=== PATIENT | male | born 1935 | race Caucasian/White ===

== ENCOUNTER 2017-04-14 19:16 | Emergency (ER) | payer MEDICARE ==
[~2017-04-14] VITALS: Ht 182.9 cm; Wt 106.5 kg
[2017-04-14 19:18] VITALS: BP 150/75; TEMP 97.3
[2017-04-14 20:09] LABS: ALBUMIN 4.1 gm/dL (3.5-5.0); BILIRUBIN,TOTAL 1.5 mg/dL (0.0-1.0); CREATININE, serum 0.93 mg/dL (0.66-1.25); POTASSIUM 4.3 mmol/L (3.4-5.0); TOTAL PROTEIN 7.3 gm/dL (6.4-8.2)
[2017-04-14 20:13] LABS: COLLECTION METHOD CLEAN CATCH
[2017-04-14 20:18] LABS: BASO % 0.1 % (0.0-2.0); EOS % 0.3 % (0-4.0); GRAN # 10.7 (1.4-6.5); GRAN % 77.6 % (42.2-75.2); HEMOGLOBIN 14.5 g/dl (13.5-18.0); LYMPH # 1.5 (1.2-3.4); LYMPH % 11.1 % (20.0-51.0); MEAN CELL VOLUME 90 fl (80.0-100.0); MEAN CORPUSCULAR HEMOGLOBIN 30 pg (27.0-31.0); MEAN CORPUSCULAR HGB CONC 33 g/dl (33.0-37.0); MEAN PLATELET VOLUME 11.2 fl (7.4-10.4); MONO # 1.4 (0.1-0.6); MONO % 10.3 % (1.7-9.3); PLATELET COUNT 208 K/mm3 (130-400); RED BLOOD COUNT 4.89 M/mm3 (4.20-5.60); REDCELL DISTRIBUTION WIDTH-CV 13.3 % (11.5-14.5)
[2017-04-14 20:23] LABS: INR 1.1 (0.8-3.0); PROTHROMBIN TIME 13.1 SECONDS (9.7-12.8)
[2017-04-14 20:26] LABS: PH 5 (5-8); SQUAMOUS EPITHELIAL 0-2 /hpf; URINE APPEARANCE Cloudy; URINE BACTERIA None Seen /hpf; URINE BILIRUBIN Negative (NEGATIVE); URINE BLOOD Negative (NEGATIVE); URINE COLOR Yellow; URINE GLUCOSE Negative (NEGATIVE); URINE KETONE Negative (NEGATIVE); URINE LEUKOCYTE ESTERASE 3+ (NEGATIVE); URINE NITRATE Negative (NEGATIVE); URINE PROTEIN(semi-quant) Negative (NEGATIVE)
[2017-04-14] MEDS ORDERED: LIPITOR 10MG10 MG PO (21:00)
[2017-04-14] MEDS ORDERED: PULMICORT0.5 MG/2 M IH (21:00)
[2017-04-14] MEDS ORDERED: IPRATROPIUM BROM3 M1 IH (21:00)
[2017-04-14] MEDS ORDERED: MULTI VITAMINS1 TAB PO (21:01)
[2017-04-14] MEDS ORDERED: FLOMAX 0.40.4 MG/CAP PO (21:01)
[2017-04-14] MEDS ORDERED: ASPIRIN 81M81 MG/TA2 PO (21:01)
[2017-04-14] MEDS ORDERED: PLAVIX 75MG TAB75 MG PO (21:01)
[2017-04-14] MEDS ORDERED: CALCIUM 600600 M2 PO (21:02)
[2017-04-14] MEDS ORDERED: ICAPS TABLET1 EACH PO (21:07)
[2017-04-14] MEDS ORDERED: XANAX 0.5MG0.5 MG PO (21:07)
[2017-04-14] MEDS ORDERED: COREG 6.256.25 MG/TA PO (21:08)
[2017-04-14] MEDS ORDERED: EX-LAX MAXIMUM25 MG PO (21:09)
[2017-04-14] MEDS ORDERED: CORDARONE200 MG/TAB PO (21:09)
[2017-04-14] MEDS ORDERED: SINGULAIR 110 MG/TAB PO (21:09)
[2017-04-14] MEDS ORDERED: CEPHALEXIN500 M1 PO (21:10)
[2017-04-14] MEDS ORDERED: OMNICEF 300MG300 MG PO (21:21)
[2017-04-14 22:00] VITALS: PULSE 75
== END 2017-04-14 22:00 | disposition home or self-care (01) ==
LOC: COL.ER 19:16
PROVIDERS: Emergency Medicine
DX: N39.0 Urinary tract infection, site not specified (principal)
CPT/HCPCS: J0696

== ENCOUNTER 2017-06-07 11:37 | Emergency (ER) | payer MEDICARE ==
[~2017-06-07] VITALS: Ht 185.4 cm; Wt 100.0 kg
[~2017-06-07 11:37] MED LIST: ASPIRIN 81M81 MG/TA2 PO; CALCIUM 600600 M2 PO; CEPHALEXIN500 M1 PO; CORDARONE200 MG/TAB PO; COREG 6.256.25 MG/TA PO; EX-LAX MAXIMUM25 MG PO; FLOMAX 0.40.4 MG/CAP PO; ICAPS TABLET1 EACH PO; IPRATROPIUM BROM3 M1 IH; LIPITOR 10MG10 MG PO; MULTI VITAMINS1 TAB PO; OMNICEF 300MG300 MG PO; PLAVIX 75MG TAB75 MG PO; PULMICORT0.5 MG/2 M IH; SINGULAIR 110 MG/TAB PO; XANAX 0.5MG0.5 MG PO
[2017-06-07 12:16] LABS: BASO % 0.2 % (0.0-2.0); EOS # 0.3 (0.0-0.7); EOS % 2.8 % (0-4.0); GRAN # 5.8 (1.4-6.5); GRAN % 64.7 % (42.2-75.2); HEMATOCRIT 44.7 % (42.0-52.0); HEMOGLOBIN 14.8 g/dl (13.5-18.0); LYMPH # 1.8 (1.2-3.4); LYMPH % 20.4 % (20.0-51.0); MEAN CELL VOLUME 89 fl (80.0-100.0); MEAN CORPUSCULAR HEMOGLOBIN 29 pg (27.0-31.0); MEAN CORPUSCULAR HGB CONC 33 g/dl (33.0-37.0); MEAN PLATELET VOLUME 10.5 fl (7.4-10.4); MONO % 11.6 % (1.7-9.3); PLATELET COUNT 198 K/mm3 (130-400); RED BLOOD COUNT 5.03 M/mm3 (4.20-5.60); REDCELL DISTRIBUTION WIDTH-CV 13.3 % (11.5-14.5)
[2017-06-07 12:18] VITALS: BP 102/73; TEMP 97
[2017-06-07 12:21] LABS: INR 1.1 (0.8-3.0); PROTHROMBIN TIME 12.4 SECONDS (9.7-12.8)
[2017-06-07 12:23] LABS: PARTIAL THROMBOPLASTIN TIME 28.5 SECONDS (26.0-37.0)
[2017-06-07 12:30] LABS: ALBUMIN 3.7 gm/dL (3.5-5.0); CALCIUM 8.9 mg/dL (8.4-10.2); CREATININE, serum 0.96 mg/dL (0.66-1.25); POTASSIUM 4.6 mmol/L (3.4-5.0); TOTAL PROTEIN 7.2 gm/dL (6.4-8.2)
[2017-06-07 12:56] LABS: COLLECTION METHOD CLEAN CATCH
[2017-06-07 13:02] LABS: MUCOUS Present /lpf; PH 6 (5-8); SQUAMOUS EPITHELIAL 0-2 /hpf; URINE APPEARANCE Clear; URINE BACTERIA None Seen /hpf; URINE BILIRUBIN Negative (NEGATIVE); URINE BLOOD 1+ (NEGATIVE); URINE COLOR Yellow; URINE GLUCOSE Negative (NEGATIVE); URINE KETONE Negative (NEGATIVE); URINE LEUKOCYTE ESTERASE Negative (NEGATIVE); URINE NITRATE Negative (NEGATIVE); URINE PROTEIN(semi-quant) Negative (NEGATIVE); URINE RBC 0-2 /hpf; URINE UROBILINOGEN Negative (NEGATIVE)
[2017-06-07] MEDS ORDERED: AMOXICILLIN 8751 TAB PO (15:26)
[2017-06-07] MEDS ORDERED: LASIX 20MG TABL20 MG PO (15:27)
[2017-06-07 16:29] VITALS: PULSE 75
== END 2017-06-07 16:30 | disposition home or self-care (01) ==
LOC: COL.ER 11:37
PROVIDERS: Emergency Medicine
DX: S00.83XA Contusion of other part of head, initial encounter (principal); Z79.02 Long term (current) use of antithrombotics/antiplatelets; Z79.82 Long term (current) use of aspirin; W01.10XA Fall on same level from slipping, tripping and stumbling with subsequent striking against unspecified object, initial encounter

== ENCOUNTER 2017-08-31 15:03 | Inpatient (IN) | payer MEDICARE ==
[~2017-08-31] VITALS: Ht 182.9 cm; Wt 107.5 kg
[~2017-08-31 15:03] MED LIST changes: +AMOXICILLIN 8751 TAB PO; +LASIX 20MG TABL20 MG PO
[2017-08-31 15:23] VITALS: BP 141/56; PULSE 76; TEMP 100.1
[2017-08-31] MEDS ORDERED: CLEOCIN HCL300 MG PO (16:26)
[2017-08-31 16:28] LABS: BASO % 0.3 % (0.0-2.0); EOS # 0.1 (0.0-0.7); EOS % 0.3 % (0-4.0); GRAN # 11.4 (1.4-6.5); HEMATOCRIT 41.6 % (42.0-52.0); HEMOGLOBIN 14.1 g/dl (13.5-18.0); LYMPH # 1.5 (1.2-3.4); LYMPH % 10.3 % (20.0-51.0); MEAN CELL VOLUME 87 fl (80.0-100.0); MEAN CORPUSCULAR HEMOGLOBIN 30 pg (27.0-31.0); MEAN CORPUSCULAR HGB CONC 34 g/dl (33.0-37.0); MEAN PLATELET VOLUME 11.1 fl (7.4-10.4); MONO # 1.5 (0.1-0.6); MONO % 10.4 % (1.7-9.3); PLATELET COUNT 186 K/mm3 (130-400); RED BLOOD COUNT 4.78 M/mm3 (4.20-5.60); REDCELL DISTRIBUTION WIDTH-CV 13.2 % (11.5-14.5)
[2017-08-31 16:54] VITALS: PULSE 75
[2017-08-31 17:25] LABS: ALBUMIN 3.4 gm/dL (3.5-5.0); BILIRUBIN,TOTAL 0.7 mg/dL (0.0-1.0); C-REACTIVE PROTEIN 8.5 mg/dL (0.0-0.9); CALCIUM 8.6 mg/dL (8.4-10.2); CREATININE, serum 0.82 mg/dL (0.66-1.25); POTASSIUM 4.5 mmol/L (3.4-5.0); TOTAL PROTEIN 6.6 gm/dL (6.4-8.2)
[2017-08-31 20:04] VITALS: BP 120/52; PULSE 69; TEMP 97.9
[2017-08-31 23:40] VITALS: BP 122/57; PULSE 70; TEMP 98.3
[2017-09-01 00:50] LABS: COLLECTION METHOD CLEAN CATCH
[2017-09-01 00:56] LABS: MUCOUS Present /lpf; PH 5 (5-8); SQUAMOUS EPITHELIAL None Seen /hpf; URINE APPEARANCE Clear; URINE BACTERIA None Seen /hpf; URINE BILIRUBIN Negative (NEGATIVE); URINE BLOOD Negative (NEGATIVE); URINE COLOR Yellow; URINE GLUCOSE Negative (NEGATIVE); URINE KETONE Negative (NEGATIVE); URINE LEUKOCYTE ESTERASE Negative (NEGATIVE); URINE NITRATE Negative (NEGATIVE); URINE PROTEIN(semi-quant) Negative (NEGATIVE); URINE RBC 0-2 /hpf
[2017-09-01 04:11] VITALS: BP 118/62; PULSE 63; TEMP 97.6
[2017-09-01 07:09] VITALS: BP 140/63; PULSE 73; TEMP 98
[2017-09-01 07:46] LABS: BASO % 0.4 % (0.0-2.0); EOS # 0.2 (0.0-0.7); EOS % 1.3 % (0-4.0); GRAN # 8.1 (1.4-6.5); HEMATOCRIT 40.8 % (42.0-52.0); HEMOGLOBIN 13.4 g/dl (13.5-18.0); LYMPH # 1.8 (1.2-3.4); LYMPH % 16.2 % (20.0-51.0); MEAN CELL VOLUME 88 fl (80.0-100.0); MEAN CORPUSCULAR HEMOGLOBIN 29 pg (27.0-31.0); MEAN CORPUSCULAR HGB CONC 33 g/dl (33.0-37.0); MEAN PLATELET VOLUME 10.7 fl (7.4-10.4); MONO % 9.3 % (1.7-9.3); PLATELET COUNT 189 K/mm3 (130-400); RED BLOOD COUNT 4.62 M/mm3 (4.20-5.60); REDCELL DISTRIBUTION WIDTH-CV 13.3 % (11.5-14.5)
[2017-09-01 08:03] LABS: CALCIUM 8.3 mg/dL (8.4-10.2); CREATININE, serum 0.81 mg/dL (0.66-1.25); POTASSIUM 4.1 mmol/L (3.4-5.0)
[2017-09-01 11:31] VITALS: BP 114/60; PULSE 68; TEMP 98.5
[2017-09-01 16:54] VITALS: BP 115/61; PULSE 68; TEMP 98.6
[2017-09-01 20:14] VITALS: BP 140/68; PULSE 78; TEMP 98
[2017-09-02 05:17] VITALS: BP 154/87; PULSE 92; TEMP 98.5
[2017-09-02 07:01] LABS: BASO % 0.4 % (0.0-2.0); EOS # 0.1 (0.0-0.7); EOS % 0.9 % (0-4.0); GRAN # 8.9 (1.4-6.5); GRAN % 78.2 % (42.2-75.2); HEMATOCRIT 43.1 % (42.0-52.0); HEMOGLOBIN 14.5 g/dl (13.5-18.0); LYMPH # 1.3 (1.2-3.4); LYMPH % 11.2 % (20.0-51.0); MEAN CELL VOLUME 85 fl (80.0-100.0); MEAN CORPUSCULAR HEMOGLOBIN 29 pg (27.0-31.0); MEAN CORPUSCULAR HGB CONC 34 g/dl (33.0-37.0); MEAN PLATELET VOLUME 10.5 fl (7.4-10.4); MONO # 0.9 (0.1-0.6); MONO % 8.3 % (1.7-9.3); PLATELET COUNT 228 K/mm3 (130-400); RED BLOOD COUNT 5.05 M/mm3 (4.20-5.60)
[2017-09-02 07:17] LABS: CALCIUM 8.6 mg/dL (8.4-10.2); CREATININE, serum 0.8 mg/dL (0.66-1.25); POTASSIUM 4.1 mmol/L (3.4-5.0)
[2017-09-02 08:29] VITALS: BP 153/82; PULSE 90; TEMP 98.7
[2017-09-02 11:35] VITALS: BP 89/46; PULSE 80; TEMP 97.7
[2017-09-02 16:18] VITALS: BP 84/39; PULSE 72; TEMP 98.4
[2017-09-02 17:31] VITALS: BP 128/70
[2017-09-02 19:43] VITALS: BP 101/55; PULSE 89; TEMP 98.2
[2017-09-03] VITALS (7 sets, daily range): BP systolic 125–144; BP diastolic 59–80; PULSE 69–81; TEMP 97.5–98.6
[2017-09-04 04:13] VITALS: BP 140/69; PULSE 69; TEMP 97.5
[2017-09-04 07:54] VITALS: BP 150/80; PULSE 73; TEMP 97.6
[2017-09-04] MEDS ORDERED: CLEOCIN HCL300 MG PO (09:22)
[2017-09-04 09:42] LABS: BASO % 0.4 % (0.0-2.0); EOS # 0.3 (0.0-0.7); EOS % 4.4 % (0-4.0); GRAN # 5.4 (1.4-6.5); GRAN % 69.6 % (42.2-75.2); HEMATOCRIT 44.4 % (42.0-52.0); HEMOGLOBIN 14.9 g/dl (13.5-18.0); LYMPH # 1.2 (1.2-3.4); LYMPH % 15.1 % (20.0-51.0); MEAN CELL VOLUME 87 fl (80.0-100.0); MEAN CORPUSCULAR HEMOGLOBIN 29 pg (27.0-31.0); MEAN CORPUSCULAR HGB CONC 34 g/dl (33.0-37.0); MEAN PLATELET VOLUME 10.1 fl (7.4-10.4); MONO # 0.7 (0.1-0.6); MONO % 9.1 % (1.7-9.3); PLATELET COUNT 229 K/mm3 (130-400); RED BLOOD COUNT 5.12 M/mm3 (4.20-5.60); REDCELL DISTRIBUTION WIDTH-CV 13.1 % (11.5-14.5)
[2017-09-04 09:53] LABS: CALCIUM 8.6 mg/dL (8.4-10.2); CREATININE, serum 0.86 mg/dL (0.66-1.25); POTASSIUM 4.1 mmol/L (3.4-5.0)
== END 2017-09-04 14:21 | disposition home health service (06) | DRG 872 ==
LOC: SURG 15:03
PROVIDERS: Hospitalist; Nurse Practitioner Family
DX: A41.9 Sepsis, unspecified organism (principal); L02.212 Cutaneous abscess of back [any part, except buttock and flank]; B95.62 Methicillin resistant Staphylococcus aureus infection as the cause of diseases classified elsewhere; Z66 Do not resuscitate; J44.9 Chronic obstructive pulmonary disease, unspecified; I25.10 Atherosclerotic heart disease of native coronary artery without angina pectoris; I10 Essential (primary) hypertension; I48.91 Unspecified atrial fibrillation; Z89.511 Acquired absence of right leg below knee; N40.1 Benign prostatic hyperplasia with lower urinary tract symptoms; N39.498 Other specified urinary incontinence; R35.0 Frequency of micturition
CPT/HCPCS: 99222-AI; 99232-AI; 99233-AI; 99239; J1644; J3370; J7040; J7050

== ENCOUNTER 2018-04-16 17:36 | Inpatient (IN) | payer MEDICARE ==
[~2018-04-16] VITALS: Ht 170.2 cm; Wt 103.8 kg
[~2018-04-16 17:36] MED LIST changes: +CLEOCIN HCL300 MG PO
[2018-04-16 20:05] LABS: ARTERIAL BLD GAS O2 SATURATION 98.2 % (92-100); ARTERIAL BLD GAS TCO2 CT 27.5; ARTERIAL BLOOD GAS BASE EXCESS 3.9 (-2-2); ARTERIAL BLOOD GAS HCO3 26.5 meq/L (22-26); ARTERIAL BLOOD GAS PCO2 33.4 mmHg (35-45); ARTERIAL BLOOD GAS pH 7.52 (7.35-7.45)
[2018-04-16 20:22] LABS: BASO % 0.1 % (0.0-2.0); GRAN # 18.5 (1.4-6.5); GRAN % 89.5 % (42.2-75.2); HEMATOCRIT 43.3 % (42.0-52.0); LYMPH # 0.7 (1.2-3.4); LYMPH % 3.6 % (20.0-51.0); MEAN CELL VOLUME 92 fl (80.0-100.0); MEAN CORPUSCULAR HEMOGLOBIN 30 pg (27.0-31.0); MEAN CORPUSCULAR HGB CONC 32 g/dl (33.0-37.0); MEAN PLATELET VOLUME 10.6 fl (7.4-10.4); MONO # 1.2 (0.1-0.6); MONO % 5.9 % (1.7-9.3); PLATELET COUNT 161 K/mm3 (130-400); RED BLOOD COUNT 4.72 M/mm3 (4.20-5.60); REDCELL DISTRIBUTION WIDTH-CV 13.7 % (11.5-14.5)
[2018-04-16 20:32] LABS: ALBUMIN 3.4 gm/dL (3.5-5.0); BILIRUBIN,TOTAL 1.3 mg/dL (0.0-1.0); C-REACTIVE PROTEIN 7.3 mg/dL (0.0-0.9); CALCIUM 8.5 mg/dL (8.4-10.2); CREATININE, serum 0.82 mg/dL (0.66-1.25); PHOSPHOROUS 4.1 mg/dL (2.5-4.5); POTASSIUM 4.7 mmol/L (3.4-5.0); TOTAL PROTEIN 6.3 gm/dL (6.4-8.2)
[2018-04-16 20:36] LABS: COLLECTION METHOD CATHETER
[2018-04-16 20:43] LABS: PH 5 (5-8); SQUAMOUS EPITHELIAL 0-2 /hpf; URINE APPEARANCE Clear; URINE BACTERIA None Seen /hpf; URINE BILIRUBIN Negative (NEGATIVE); URINE BLOOD Negative (NEGATIVE); URINE COLOR Yellow; URINE GLUCOSE Negative (NEGATIVE); URINE KETONE Negative (NEGATIVE); URINE LEUKOCYTE ESTERASE Negative (NEGATIVE); URINE NITRATE Negative (NEGATIVE); URINE PROTEIN(semi-quant) Negative (NEGATIVE); URINE RBC 0-2 /hpf
[2018-04-16 21:03] LABS: TROPONIN-I 0.039 ng/mL (0.000-0.035)
[2018-04-16] MEDS ORDERED: PROTONIX20 MG PO (22:47)
[2018-04-16] MEDS ORDERED: VENTOLIN0.09 MG IH (22:49)
--- NOTE | 2018-04-16 23:05 | NUR ---
Pt arrived to room 357, transferred per stretcher by ED staff. Pt awake, alert, oriented to person/place c frequent confused statements. Pt denies pain, increased SOB or other c/o. O2 per NC. Tele in place. IV patent; IVF's et ABX infusing per orders. Da at bedside. Pt/da oriented to room, unit policies et current POC. Questions invited et answered, both verbalize understanding. Pt s needs at this time. Call light in reach, bed alarm on. Will continue c admit process.
[2018-04-16 23:52] VITALS: BP 107/55; PULSE 73; TEMP 98
[2018-04-17] VITALS (7 sets, daily range): BP systolic 83–144; BP diastolic 47–78; PULSE 72–106; TEMP 97.3–100.2
[2018-04-17 06:53] LABS: BASO % 0.2 % (0.0-2.0); GRAN # 15.9 (1.4-6.5); GRAN % 89.5 % (42.2-75.2); HEMOGLOBIN 13.1 g/dl (13.5-18.0); LYMPH # 0.6 (1.2-3.4); LYMPH % 3.4 % (20.0-51.0); MEAN CELL VOLUME 94 fl (80.0-100.0); MEAN CORPUSCULAR HEMOGLOBIN 29 pg (27.0-31.0); MEAN CORPUSCULAR HGB CONC 31 g/dl (33.0-37.0); MEAN PLATELET VOLUME 10.8 fl (7.4-10.4); MONO # 1.1 (0.1-0.6); PLATELET COUNT 146 K/mm3 (130-400); RED BLOOD COUNT 4.46 M/mm3 (4.20-5.60); REDCELL DISTRIBUTION WIDTH-CV 13.6 % (11.5-14.5)
[2018-04-17 07:13] LABS: CALCIUM 8.2 mg/dL (8.4-10.2); CREATININE, serum 0.98 mg/dL (0.66-1.25); POTASSIUM 4.5 mmol/L (3.4-5.0)
--- NOTE | 2018-04-17 08:45 | NUR ---
Assessment complete. Pt laying in bed with eyes closed, resp even and unlabored. Pt arouses briefly to stimuli but then right back to sleep. Breath sounds with rhonchi bilat. BS active x 4. No facial grimace and muscles relaxed. 2+ edema to right lower ext with erythema distal. IVF's infusing per orders through left forearm site without s/s of complications. Call light in reach.
--- NOTE | 2018-04-17 11:15 | NUR ---
Pt awake and alert now after working with PT, takes morning medications without difficulty. BP reading low 87/53 but cuff placed on forearm d/t machine not giving a reading in the upper arm. Pt having increased tremors to bilat upper ext while awake. Pt was incontinent of bowel and bladder, assisted with cleaning and linens changed. Redness with small area of skin breakdown to sacral region, Aquacell dressing placed. Call light in reach.
--- NOTE | 2018-04-17 16:35 | NUR ---
DENILSON met with patient and patients daughter to discuss discharge planning. Patient lives at [facility] and his daughter feels that is going well and they are meeting his needs there. He is still receiving services from [facility]. patients PCP is Dr Funes and he obtains his medications from [facility]. DENILSON will continue to follow and update [facility].
--- NOTE | 2018-04-17 20:10 | NUR ---
Shift assessment complete. Pt resting in bed, awake, alert, oriented to self only c persistant confusion. Pt denies pain, increase SOB or other c/o. INT leaking, dc'd by this RN et new access obtained x1 attempt to R forearm, pt napoleon well. O2 per OM. Pt s further needs at this time. Call light in reach, bed alarm on. Will monitor.
[2018-04-18 08:40] LABS: BASO % 0.1 % (0.0-2.0); GRAN % 81.6 % (42.2-75.2); HEMATOCRIT 42.7 % (42.0-52.0); HEMOGLOBIN 13.2 g/dl (13.5-18.0); LYMPH # 1.1 (1.2-3.4); LYMPH % 8.3 % (20.0-51.0); MEAN CELL VOLUME 94 fl (80.0-100.0); MEAN CORPUSCULAR HEMOGLOBIN 29 pg (27.0-31.0); MEAN CORPUSCULAR HGB CONC 31 g/dl (33.0-37.0); MEAN PLATELET VOLUME 10.9 fl (7.4-10.4); MONO # 1.3 (0.1-0.6); MONO % 9.4 % (1.7-9.3); PLATELET COUNT 128 K/mm3 (130-400); RED BLOOD COUNT 4.55 M/mm3 (4.20-5.60); REDCELL DISTRIBUTION WIDTH-CV 13.7 % (11.5-14.5)
[2018-04-18 08:46] VITALS: BP 117/69; PULSE 90; TEMP 97.9
[2018-04-18 08:55] LABS: CALCIUM 8.2 mg/dL (8.4-10.2); CREATININE, serum 0.87 mg/dL (0.66-1.25); POTASSIUM 4.4 mmol/L (3.4-5.0)
--- NOTE | 2018-04-18 09:21 | NUR ---
Pt in bed in chair position. Pt is confused, unable to say where he is or the year. Pt denies any pain at this time. Assement completed and medications administered. Breathing unlabored, coarseness noted on auscultation. Pt had a bowel movement, bed linen changed. Pt denies any needs at this time, call light in reach.
[2018-04-18 11:46] VITALS: BP 121/63; PULSE 88; TEMP 98.3
--- NOTE | 2018-04-18 14:22 | NUR ---
Update faxed to [facility].
[2018-04-18 15:21] VITALS: BP 144/67; PULSE 92; TEMP 98.2
--- NOTE | 2018-04-18 17:45 | NUR ---
Pt sitting up in bed. Pt denies pain or any needs at this time. Pt breathing is even and unlabored with intermittant coughing. Pt is confused and disoriented to time and place. Pt has new int in left hand wrapped with shobha bandage, pt has removed two previous ints. Pts WBCs have been decreasing, states he is feeling better and has an increased appetite. Pt denies any needs at this time, call light in reach and bed in lowest position.
[2018-04-18 20:52] VITALS: BP 126/66; PULSE 87; TEMP 97.7
[2018-04-19 00:21] VITALS: BP 149/83; PULSE 90; TEMP 97.3
--- NOTE | 2018-04-19 00:23 | NUR ---
Completed assessment and medication administration; PT tolerated all cares well at time of assessment; PT continues to be droplet precautions; 2000 Vancomycin dose held d/t lab value called to [facility]; N/O for Seroquel 25mg NOW for agitation in evening hours at bedtime; No further concerns or complaints; PT alert to self only, BS active x4, ext wheezes with diminshed bases; PT assisted to a comfortable position in bed with call light in reach; Will continue to monitor. CDA
--- NOTE | 2018-04-19 13:36 | NUR ---
DENILSON called Magaly at [facility] to discuss discharge plan. Magaly reports they are unable to accept back until patient has gone to [facility] as he is too weak for them to handle there. DENILSON called patients daughter Liz to discuss this. She would like either [facility] or [facility], no preferance. Verbal choice form placed on chart. referrals faxed to [facility].
--- NOTE | 2018-04-19 13:44 | NUR ---
Initial visit; Patient thanked Ophthalmic Surgeon for looking in on him and offering prayer and encouragement.
[2018-04-20 08:00] VITALS: BP 104/62; PULSE 90; TEMP 98.6
[2018-04-20 12:00] VITALS: BP 132/89; PULSE 75; TEMP 98.6
[2018-04-20 13:43] LABS: BASO % 0.1 % (0.0-2.0); GRAN # 9.1 (1.4-6.5); GRAN % 88.6 % (42.2-75.2); HEMATOCRIT 41.5 % (42.0-52.0); HEMOGLOBIN 13.1 g/dl (13.5-18.0); LYMPH # 0.5 (1.2-3.4); LYMPH % 5.2 % (20.0-51.0); MEAN CELL VOLUME 93 fl (80.0-100.0); MEAN CORPUSCULAR HEMOGLOBIN 29 pg (27.0-31.0); MEAN CORPUSCULAR HGB CONC 32 g/dl (33.0-37.0); MEAN PLATELET VOLUME 11.1 fl (7.4-10.4); MONO # 0.6 (0.1-0.6); MONO % 5.3 % (1.7-9.3); PLATELET COUNT 137 K/mm3 (130-400); RED BLOOD COUNT 4.48 M/mm3 (4.20-5.60); REDCELL DISTRIBUTION WIDTH-CV 13.3 % (11.5-14.5)
--- NOTE | 2018-04-20 13:51 | NUR ---
[facility] able to accept patient, [facility] is out of network and unable to accept. SW called patients daughter to inform her. [facility] would like update on monday if patient to discharge monday.
[2018-04-20 14:33] LABS: BASO % 0.1 % (0.0-2.0); GRAN # 5.8 (1.4-6.5); GRAN % 75.7 % (42.2-75.2); HEMATOCRIT 40.9 % (42.0-52.0); HEMOGLOBIN 12.8 g/dl (13.5-18.0); LYMPH % 13.3 % (20.0-51.0); MEAN CELL VOLUME 93 fl (80.0-100.0); MEAN CORPUSCULAR HEMOGLOBIN 29 pg (27.0-31.0); MEAN CORPUSCULAR HGB CONC 31 g/dl (33.0-37.0); MEAN PLATELET VOLUME 10.5 fl (7.4-10.4); MONO # 0.8 (0.1-0.6); MONO % 10.2 % (1.7-9.3); PLATELET COUNT 149 K/mm3 (130-400); RED BLOOD COUNT 4.42 M/mm3 (4.20-5.60); REDCELL DISTRIBUTION WIDTH-CV 13.3 % (11.5-14.5)
[2018-04-20 14:35] LABS: CALCIUM 8.7 mg/dL (8.4-10.2); CREATININE, serum 0.86 mg/dL (0.66-1.25); POTASSIUM 4.3 mmol/L (3.4-5.0)
[2018-04-20 14:57] LABS: CALCIUM 8.6 mg/dL (8.4-10.2); CREATININE, serum 0.87 mg/dL (0.66-1.25); MAGNESIUM 2.3 mg/dL (1.6-2.3); POTASSIUM 4.5 mmol/L (3.4-5.0)
[2018-04-20 16:11] VITALS: BP 131/79; PULSE 78; TEMP 97.7
--- NOTE | 2018-04-20 18:49 | NUR ---
Pt lying in bed with daughter at bedside. Pt is alert but confused and disoriented. Pt has been eating and drinking with no problem today. Call light in reach.
[2018-04-20 18:58] VITALS: BP 131/74; PULSE 98; TEMP 97.1
[2018-04-21 00:15] VITALS: BP 132/83; PULSE 68; TEMP 97.7
--- NOTE | 2018-04-21 02:54 | NUR ---
Patient assessed at beginning of shift with daughter present. Wheezes throughout all lung kinsey. Occasional moist cough, but unable to produce sputum to be observed. Denies having pain and discomfort. Patient is without s/sx of pain or discomfort, such as facial grimacing and moaning. Confused, but staff redirects frequently. Full bed change. Mepilex changed to bottom. Redness continues to area, but no open area noted to site. Resting in bed with eyes closed at this time. Call light is within reach.
[2018-04-21 05:00] VITALS: BP 136/84; PULSE 76; TEMP 97.5
[2018-04-21 08:23] LABS: BASO % 0.1 % (0.0-2.0); GRAN # 5.5 (1.4-6.5); GRAN % 78.5 % (42.2-75.2); HEMATOCRIT 39.9 % (42.0-52.0); HEMOGLOBIN 12.7 g/dl (13.5-18.0); LYMPH # 0.8 (1.2-3.4); LYMPH % 11.8 % (20.0-51.0); MEAN CELL VOLUME 92 fl (80.0-100.0); MEAN CORPUSCULAR HEMOGLOBIN 29 pg (27.0-31.0); MEAN CORPUSCULAR HGB CONC 32 g/dl (33.0-37.0); MEAN PLATELET VOLUME 10.4 fl (7.4-10.4); MONO # 0.7 (0.1-0.6); MONO % 9.2 % (1.7-9.3); PLATELET COUNT 133 K/mm3 (130-400); RED BLOOD COUNT 4.35 M/mm3 (4.20-5.60); REDCELL DISTRIBUTION WIDTH-CV 13.2 % (11.5-14.5)
[2018-04-21 08:33] LABS: CALCIUM 8.3 mg/dL (8.4-10.2); CREATININE, serum 0.83 mg/dL (0.66-1.25); POTASSIUM 4.1 mmol/L (3.4-5.0)
--- NOTE | 2018-04-21 09:00 | NUR ---
Patient resting in bed at this time. Patient rouses easily to name, is alert and paritally oriented at this time. Patient has breakfast tray at bedside, assisted patient to sitting position and provided set up, patient is able to feed himself. Patient denies any pain or nausea at this time, call light within reach.
[2018-04-21 09:16] VITALS: BP 136/69; PULSE 87; TEMP 97.5
[2018-04-21 16:00] VITALS: BP 123/70; PULSE 78; TEMP 97.5
--- NOTE | 2018-04-21 17:30 | NUR ---
Patient has been up to the beside recliner today, daughter at bedside. Patient has had no complaints of SOB on this shift. Has been intermittently confused, but reoriented easily. Patient has returned to bed and is resting comfortably. Call light within reach, no complaints of pain at this time.
[2018-04-21 18:37] VITALS: BP 114/69; PULSE 83; TEMP 97.1
--- NOTE | 2018-04-21 20:30 | NUR ---
Initial shift assessment done- confused-states his car is here and he is ready to go home-needs his keys. Reoriented,needs review- daughter in room with pt at this time. Bed alarm on. Incontinent of large amounts of urine- changed- repositioned. O2 at 2L/nc.
[2018-04-22 01:12] VITALS: BP 118/67; PULSE 60; TEMP 97.6
[2018-04-22 04:00] VITALS: BP 141/77; PULSE 94; TEMP 97.3
--- NOTE | 2018-04-22 05:26 | NUR ---
Did sleep for short intervals throughout the night- very pleasantly confused, Has been incontinent of large amounts of urine 4-5 times during the night-repositoned, o2 at 3L/nc most of the night--desats to low 80,s when pt takes o2 off
[2018-04-22 06:38] LABS: CALCIUM 8.3 mg/dL (8.4-10.2); CREATININE, serum 0.85 mg/dL (0.66-1.25); MAGNESIUM 2.1 mg/dL (1.6-2.3)
[2018-04-22 07:56] VITALS: BP 121/72; PULSE 79; TEMP 97.9
--- NOTE | 2018-04-22 08:00 | NUR ---
Patient alert and confused, agitated at this time. Lungs decreased in bases, clear in upper lobes. O2 at 2l/nc. LLE with black areas noted to toes, redness to calf, pulses palpable, sensation intact. 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 Attempted to re-orient patient, becomes angry. Assisted to chair x2. Affect better with positioning to chair. No other c/o at this time.
[2018-04-22 13:00] VITALS: BP 119/64; PULSE 89; TEMP 98.4
[2018-04-22 17:22] VITALS: BP 138/88; PULSE 82; TEMP 97.9
[2018-04-22 20:17] VITALS: BP 107/57; PULSE 76; TEMP 97.6
--- NOTE | 2018-04-22 22:00 | NUR ---
Initial shift assessment done- confused- yelling out for someone to talk too- talked with pt, states he is in [place], but doesnt know what building he is in----attempted to reorient- needs reinforcement-- states he will sleep better now that he knows he is in the hospital-- Incontinent of stool and urine- cleaned up- pulled up in bed- o2 at 2L/nc. Found INT in bed{fell out??} restarted new INT to r/wrist 22g-
[2018-04-23] VITALS (7 sets, daily range): BP systolic 77–131; BP diastolic 40–81; PULSE 63–101; TEMP 97.7–98.9
--- NOTE | 2018-04-23 05:35 | NUR ---
Quiet night- slept for most of the night,,remains confused but very pleasant, VSS. Incontinent of large amounts of urine throughout the night
[2018-04-23 06:25] LABS: CALCIUM 8.5 mg/dL (8.4-10.2); CREATININE, serum 0.85 mg/dL (0.66-1.25); MAGNESIUM 2.1 mg/dL (1.6-2.3); POTASSIUM 3.9 mmol/L (3.4-5.0)
--- NOTE | 2018-04-23 09:41 | NUR ---
Assessment completed, alert/partially oriented to person and place but is forgetfull, denies pain this monring, vital signs stable, heart irregular/ hx A.fib, lungs CTA/ diminished, IV Zosyn continued for now, accepted to [facility] [place] and social work on the case to help with this, anticipate possible transfer today, I have helped patient use the urinal and order breakfast, bed alarm is set, denies needs otherwise
--- NOTE | 2018-04-23 10:45 | NUR ---
SOP2 88% ON 2 LPM NC. INCREASED TO 3 LPM NC 92%
--- NOTE | 2018-04-23 13:49 | NUR ---
DENILSON contacted and faxed updates to [facility]. SW to continue to follow.
--- NOTE | 2018-04-23 21:43 | NUR ---
PT IN BED WITH HOB ELEVATED TO 45 DEGREE ANGLE. PT AWAKENS TO ANSWER QUESTIONS, PT IS FORT BIDWELL, AFTER ANSWERS QUESTIONS DRIFTS BACK TO SLEEP. PT DENIES PAIN OR DISCOMFORT AND HAS NO NEEDS AT THIS TIME. CALL LIGHT WITHIN REACH AND BED ALARM IS ON.
[2018-04-24] VITALS (7 sets, daily range): BP systolic 95–148; BP diastolic 50–99; PULSE 69–89; TEMP 97.4–98.1
--- NOTE | 2018-04-24 01:15 | NUR ---
PT IN BED WITH HOB ELEVATED TO 45 DEGREE ANGLE. PT HAD VOIDED IN URINAL BUT WAS ALSO INCONTINENT OF BLADDER AND BOWEL. PT WAS CHANGED X2 ASSIST. PT ALSO RECEIVED A SNACK AROUND 0000. PT HAD WEDDING BAND (RING) IN HIS MOUTH, REMOVED RING FROM MOUTH AND ADVISED HIM TO PLACE ON HIS FINGER. PT DID DIRECTED. NO FURTHER NEEDS AT THIS TIME CALL LIGHT WITHIN REACH.
--- NOTE | 2018-04-24 03:03 | NUR ---
CALLED NORI [place], AND ADVISED THAT IN REPORT WAS TOLD THAT PT'S TELEMETRY WAS DISCONTINUED. NORI [place] ADVISED TO GO AHEAD AND DISCONTINUE IN THE COMPUTER THE TELEMETRY.
--- NOTE | 2018-04-24 03:05 | NUR ---
PT HAS BEEN HOLLERING OUT THROUGHOUT THE NIGHT. PT IS FINALLY SLEEPING OR RESTING. BED ALARM IS ON AND CALL LIGHT WITHIN REACH.
--- NOTE | 2018-04-24 05:24 | NUR ---
PT HAS BEEN SLEEPING/RESTING WELL FOR A FEW HOURS THIS NIGHT. PT WAS OFFERED SEVERAL TIMES DURING THE NIGHT TO BE REPOSITIONED, BUT PT REFUSED EACH TIME. BED ALARM ON AND CALL LIGHT WITHIN REACH.
--- NOTE | 2018-04-24 07:20 | NUR ---
Pt resting in bed with call light in reach and fall precautions in place. Pt alert but confused to day,time, and place. Pt reorients easily. Pt very pleasant. Pt am assessment being completed. Pt denies pain. Pt has oxygen on via nasal cannula and denies SOB at rest. Pt has IV in R wrist. IV patent and no infiltration or redness noted. Pt breakfast ordered. Pt BP good this am and greater than 110 systolic. Pt repositioned and call light in reach.
[2018-04-24 07:28] LABS: CALCIUM 8.3 mg/dL (8.4-10.2); CREATININE, serum 0.76 mg/dL (0.66-1.25); MAGNESIUM 2.3 mg/dL (1.6-2.3); POTASSIUM 4.1 mmol/L (3.4-5.0)
[2018-04-24] MEDS ORDERED: ZESTRIL2.5 MG PO (10:15)
[2018-04-24] MEDS ORDERED: COREG 3.123.125 MG/T PO (10:15)
[2018-04-24] MEDS ORDERED: TYLENOL 325MG325 MG PO (10:15)
[2018-04-24] MEDS ORDERED: LASIX 40MG TABL40 MG PO (10:21)
[2018-04-24] MEDS ORDERED: SEROQUEL50 MG PO (10:21)
[2018-04-24] MEDS ORDERED: PREDNISONE20 MG PO (10:22)
--- NOTE | 2018-04-24 17:16 | NUR ---
Pt alert but confused with conversation at times. Pt up to chair by PT this afternoon and assisted x 3 back to bed with walker. Pt SOB and remains on 2L oxygen. Pt BP via dynamap 90's/50's rechecked with manual BP cuff and 108/72 on right arm. Pt incontinent of BM this afternoon and cares provided. Pt has call light in reach and fall precautions in place.
--- NOTE | 2018-04-24 19:23 | NUR ---
Pt report given to Agatha CHILDS. Daughter at bedside and pt has call light in reach and denies needs at this time.
--- NOTE | 2018-04-24 19:56 | NUR ---
Initial shift assessment done- denies pain, confused, daughter at bedside- bed alarm on, pt watching TV, no requests- did eat some pudding as a snack- o2 at 3L/nc, wheezy with any exertion
[2018-04-25 01:19] VITALS: BP 152/68; PULSE 91; TEMP 97.7
[2018-04-25 03:39] VITALS: BP 136/86; PULSE 68; TEMP 97.9
--- NOTE | 2018-04-25 05:41 | NUR ---
Did sleep well after prn seroquel was given about MN-- VSS, repositioned, incontinent of urine x4, incontinent of smear of stool.
[2018-04-25 08:19] VITALS: BP 141/54; PULSE 90; TEMP 98
[2018-04-25 09:09] VITALS: BP 121/64; PULSE 82
--- NOTE | 2018-04-25 09:18 | NUR ---
PT IN BED WITH HOB AT 45 DEGREE ANGLE, EATING BREAKFAST. PT HAS GOOD APPETITE, EATS 100% OF BREAKFAST. PT HAS EXP WHEEZES THAT IS AUDIBLE AND LS ARE COARSE. RESP ARE EVEN AND UNLABORED. PT WEARING O2 AT 3L/NC. PT HAS NO C/O PAIN OR DISCOMFORT, CALL LIGHT IN REACH AND BED ALARM IS ON.
[2018-04-25 11:05] VITALS: BP 105/79; PULSE 71; TEMP 98.3
--- NOTE | 2018-04-25 11:23 | NUR ---
DR. LUO AWARE THAT BP IS 105/79, ORDERS GIVEN TO GIVE LASIX ANYWAY.
--- NOTE | 2018-04-25 13:36 | NUR ---
CALLED [facility] AND GAVE REPORT TO ARTEM.
--- NOTE | 2018-04-25 13:41 | NUR ---
Patient is DC today to [facility] for skilled care. SW set up transport via wheelchair van for 1pm however it was pushed back. SW called patients daughter and verbally discussed the IM. She was agreeable and gave verbal consent to sign the form. Discharge orders faxed.
--- NOTE | 2018-04-25 13:47 | NUR ---
PT CHANGED INTO OWN CLOTHING. PT HAD AN INCONTINENT EPISODE OF URINE AND BOWEL MOVEMENT. PT CLEANED AND ADVISED THAT HE IS GOING TO A HALF-WAY FACILITY.
--- NOTE | 2018-04-25 14:46 | NUR ---
PT'S IV WAS REMVOED FROM RIGHT WRIST, CATHETER INTACT, APPLIED PRESSURE TILL BLEEDING STOPPED, AND A PROTECTIVE DRSG WAS APPLIED. PT'S TELEMETRY WAS REMOVED. PT'S PERSONAL BELONGS PLACED IN BACK AND CLOTHING ON PT. PT ASSISTED INTO WHEELCHAIR X3 WITH PHYSICIAL THERAPY'S HELP. PT HAS NO C/O PAIN OR DISCOMFORT. [facility] CALLED AND NOT SURE WHEN THEY WILL PICK HIM UP. CALL LIGHT WITHIN REACH.
--- NOTE | 2018-04-25 15:19 | NUR ---
PT PICKED UP BY [facility], LEFT VIA WHEELCHAIR WITH ALL PERSONAL BELONGINGS, AT 1515.
== END 2018-04-25 15:15 | DRG 871 ==
LOC: COL.ER 17:36 → MEDICAL 21:17
PROVIDERS: Emergency Medicine; Internal Medicine; Nurse Practitioner; Physician Assistant; ADMIT Hospitalist
DX: A41.9 Sepsis, unspecified organism (principal); J18.1 Lobar pneumonia, unspecified organism; I21.A1 Myocardial infarction type 2; I50.23 Acute on chronic systolic (congestive) heart failure; J44.0 Chronic obstructive pulmonary disease with (acute) lower respiratory infection; J90 Pleural effusion, not elsewhere classified; J44.1 Chronic obstructive pulmonary disease with (acute) exacerbation; E87.3 Alkalosis; Z66 Do not resuscitate; I11.0 Hypertensive heart disease with heart failure; I25.10 Atherosclerotic heart disease of native coronary artery without angina pectoris; I48.2 Chronic atrial fibrillation; Z91.81 History of falling; F41.9 Anxiety disorder, unspecified; Z89.511 Acquired absence of right leg below knee; E78.5 Hyperlipidemia, unspecified; N40.1 Benign prostatic hyperplasia with lower urinary tract symptoms; N39.41 Urge incontinence; I95.9 Hypotension, unspecified
CPT/HCPCS: 99223-AI; 99232-AI; 99233-AI; 99239; J1644; J1940; J1956; J2543; J3370; J7030; J7050; J7512

== ENCOUNTER → 2018-04-30 | Outpatient (CLI) | payer MEDICARE ==
[~2018-04-30] MED LIST changes: +COREG 3.123.125 MG/T PO; +LASIX 40MG TABL40 MG PO; +PREDNISONE20 MG PO; +PROTONIX20 MG PO; +RISPERDAL 0.5M0.5 MG PO; +SEROQUEL50 MG PO; +TYLENOL 325MG325 MG PO; +VANTIN 200200 MG/TAB PO; +VENTOLIN0.09 MG IH; +ZESTRIL2.5 MG PO
[2018-04-30 10:29] LABS: BASO % 0.2 % (0.0-2.0); EOS # 0.1 (0.0-0.7); EOS % 1.2 % (0-4.0); GRAN # 8.6 (1.4-6.5); GRAN % 75.7 % (42.2-75.2); HEMATOCRIT 45.8 % (42.0-52.0); HEMOGLOBIN 14.5 g/dl (13.5-18.0); LYMPH # 1.5 (1.2-3.4); LYMPH % 13.4 % (20.0-51.0); MEAN CELL VOLUME 90 fl (80.0-100.0); MEAN CORPUSCULAR HEMOGLOBIN 29 pg (27.0-31.0); MEAN CORPUSCULAR HGB CONC 32 g/dl (33.0-37.0); MEAN PLATELET VOLUME 11.2 fl (7.4-10.4); MONO % 8.6 % (1.7-9.3); PLATELET COUNT 181 K/mm3 (130-400); RED BLOOD COUNT 5.07 M/mm3 (4.20-5.60); REDCELL DISTRIBUTION WIDTH-CV 13.6 % (11.5-14.5)
[2018-04-30 10:41] LABS: BILIRUBIN,TOTAL 0.9 mg/dL (0.0-1.0); CALCIUM 7.7 mg/dL (8.4-10.2); CREATININE, serum 0.95 mg/dL (0.66-1.25); POTASSIUM 4.7 mmol/L (3.4-5.0); TOTAL PROTEIN 5.6 gm/dL (6.4-8.2)
== END ==
LOC: ZLAB.STJ 10:14
PROVIDERS: Internal Medicine
DX: R41.82 Altered mental status, unspecified (principal); R53.81 Other malaise

== ENCOUNTER 2018-05-01 12:05 | Emergency (ER) | payer MEDICARE ==
[~2018-05-01] VITALS: Ht 185.4 cm; Wt 113.6 kg
[~2018-05-01 12:05] MED LIST changes: -RISPERDAL 0.5M0.5 MG PO; -VANTIN 200200 MG/TAB PO
[2018-05-01 12:09] VITALS: TEMP 98.7
[2018-05-01 12:46] LABS: COLLECTION METHOD CLEAN CATCH
[2018-05-01 12:54] LABS: MUCOUS Present /lpf; PH 7 (5-8); SQUAMOUS EPITHELIAL 0-2 /hpf; URINE APPEARANCE Hazy; URINE BACTERIA Rare /hpf; URINE BILIRUBIN Negative (NEGATIVE); URINE BLOOD Negative (NEGATIVE); URINE COLOR Yellow; URINE GLUCOSE Negative (NEGATIVE); URINE KETONE Negative (NEGATIVE); URINE LEUKOCYTE ESTERASE 2+ (NEGATIVE); URINE NITRATE Negative (NEGATIVE); URINE PROTEIN(semi-quant) Negative (NEGATIVE)
[2018-05-01] MEDS ORDERED: RISPERDAL 0.5M0.5 MG PO (12:54)
[2018-05-01 12:59] LABS: BASO % 0.1 % (0.0-2.0); EOS # 0.1 (0.0-0.7); EOS % 0.6 % (0-4.0); GRAN # 9.6 (1.4-6.5); GRAN % 76.8 % (42.2-75.2); HEMATOCRIT 44.5 % (42.0-52.0); HEMOGLOBIN 14.5 g/dl (13.5-18.0); LYMPH # 1.3 (1.2-3.4); LYMPH % 10.1 % (20.0-51.0); MEAN CELL VOLUME 89 fl (80.0-100.0); MEAN CORPUSCULAR HEMOGLOBIN 29 pg (27.0-31.0); MEAN CORPUSCULAR HGB CONC 33 g/dl (33.0-37.0); MEAN PLATELET VOLUME 11.2 fl (7.4-10.4); MONO # 1.4 (0.1-0.6); MONO % 11.4 % (1.7-9.3); PLATELET COUNT 164 K/mm3 (130-400); RED BLOOD COUNT 4.99 M/mm3 (4.20-5.60); REDCELL DISTRIBUTION WIDTH-CV 13.4 % (11.5-14.5)
[2018-05-01 13:00] LABS: ALBUMIN 3.3 gm/dL (3.5-5.0); BILIRUBIN,TOTAL 1.1 mg/dL (0.0-1.0); CALCIUM 8.3 mg/dL (8.4-10.2); CREATININE, serum 0.89 mg/dL (0.66-1.25); POTASSIUM 4.2 mmol/L (3.4-5.0)
[2018-05-01 13:04] LABS: TRICYCLIC ANTIDEPRESS URINE POSITIVE
[2018-05-01 13:30] LABS: THYROID STIMULATING HORMONE 2.92 uIU/mL (0.465-4.680)
[2018-05-01] MEDS ORDERED: VANTIN 200200 MG/TAB PO (17:49)
[2018-05-01 18:16] VITALS: BP 96/59; PULSE 105
== END 2018-05-01 18:08 ==
LOC: COL.ER 12:05
PROVIDERS: Family Medicine
DX: R45.1 Restlessness and agitation (principal); I10 Essential (primary) hypertension; J44.9 Chronic obstructive pulmonary disease, unspecified; I25.10 Atherosclerotic heart disease of native coronary artery without angina pectoris; Z79.51 Long term (current) use of inhaled steroids; Z79.82 Long term (current) use of aspirin; Z79.02 Long term (current) use of antithrombotics/antiplatelets
CPT/HCPCS: A4216; J0696